=== PATIENT | female | born 1945 ===

== ENCOUNTER 2019-09-18 04:16 | Inpatient (IN) ==
[~2019-09-18 04:16] MED LIST: ACETAMINOPHEN 500 MG TABLET PO ONE; DIAZEPAM 5 MG TABLET PO ONE
[2019-09-18] MEDS ORDERED: VANCOMYCIN 1,000 MG VIAL ONE (05:52)
[2019-09-18] MEDS ORDERED: ceFAZolin 1,000 MG VIAL ONE (05:52)
[2019-09-18] MEDS ORDERED: DIAZEPAM 5 MG TABLET ONE (05:52)
[2019-09-18] MEDS ORDERED: ACETAMINOPHEN 500 MG TABLET ONE (05:53)
[2019-09-18] MEDS ORDERED: FAMOTIDINE 20 MG TABLET ONE (05:53)
[2019-09-18] MEDS ORDERED: GABAPENTIN 400 MG CAPSULE ONE (05:53)
[2019-09-18] MEDS ORDERED: FAMOTIDINE 20 MG TABLET PO ONE (06:30)
[2019-09-18] MEDS ORDERED: DIAZEPAM 5 MG TABLET PO ONE (06:30)
[2019-09-18] MEDS ORDERED: LACTATED RINGERS 1,000 ML IV SCH (06:30)
[2019-09-18] MEDS ORDERED: ceFAZolin 1,000 MG in SYRINGE 1 EACH IV ONE (06:30)
[2019-09-18] MEDS ORDERED: ACETAMINOPHEN 500 MG TABLET PO ONE (06:30)
[2019-09-18] MEDS ORDERED: GABAPENTIN 400 MG CAPSULE PO ONE (06:30)
[2019-09-18] MEDS ORDERED: VANCOMYCIN INJ 1,000 MG in SODIUM CHLORIDE 0.9% 250 ML IV ONE (06:30)
[2019-09-18] MEDS ORDERED: LIDOCAINE 1% 5 ML VIAL ONE (06:38)
[2019-09-18] MEDS ORDERED: DEXAMETHASONE 4 MG/1 ML VIAL ONE ×2 (06:38→08:59)
[2019-09-18] MEDS ORDERED: ROPIVACAINE 0.5% 30 ML VIAL ONE (06:38)
[2019-09-18] MEDS ORDERED: BISACODYL 10 MG SUPP RECTAL PRN (06:53)
[2019-09-18] MEDS ORDERED: diphenhydrAMINE CAP 25 MG CAPSULE PO PRN (06:53)
[2019-09-18] MEDS ORDERED: LACTULOSE 20 GM/30 ML UDCUP PO PRN (06:53)
[2019-09-18] MEDS ORDERED: PROMETHAZINE 25 MG/1 ML VIAL IM PRN (06:53)
[2019-09-18] MEDS ORDERED: ONDANSETRON 4 MG/2 ML VIAL IV PRN (06:53)
[2019-09-18] MEDS ORDERED: MAGNESIUM HYDROXIDE SUSP 30 ML UDCUP PO PRN (06:53)
[2019-09-18] MEDS ORDERED: TEMAZEPAM 7.5 MG CAPSULE PO PRN (06:53)
[2019-09-18] MEDS ORDERED: SENNA 8.6 MG TABLET PO PRN (06:56)
[2019-09-18] MEDS ORDERED: PROPOFOL 200 MG/20 ML VIAL IV ONE (08:57)
[2019-09-18] MEDS ORDERED: BUPIVACAINE SPINAL 0.75% 2 ML AMP SPINAL ONE (08:57)
[2019-09-18] MEDS ORDERED: LIDOCAINE 2% 5 ML VIAL ONE (08:57)
[2019-09-18] MEDS ORDERED: fentaNYL 100 MCG/2 ML VIAL ONE (08:58)
[2019-09-18] MEDS ORDERED: MIDAZOLAM 2 MG/2 ML VIAL ONE (08:58)
[2019-09-18] MEDS ORDERED: ONDANSETRON 4 MG/2 ML VIAL ONE (08:59)
[2019-09-18] MEDS ORDERED: KETAMINE 500 MG/10 ML VIAL ONE (08:59)
[2019-09-18] MEDS ORDERED: SODIUM CHLORIDE 0.9% 250 ML IV ONE (09:00)
[2019-09-18] MEDS ORDERED: ETOMIDATE 40 MG/20 ML VIAL IV ONE (09:00)
[2019-09-18] MEDS ORDERED: TRANEXAMIC ACID 1,000 MG/10 ML VIAL ONE (09:00)
[2019-09-18] MEDS ORDERED: INFLUENZA VIRUS VACCINE 0.5 ML SYRINGE IM ONE (10:04)
[2019-09-18] MEDS ORDERED: MORPHINE 4 MG/1 ML VIAL IV PRN (10:57)
[2019-09-18] MEDS: LISINOPRIL 20 MG TABLET PO SCH (11:06)
[2019-09-18] MEDS: MELOXICAM 7.5 MG TABLET PO SCH (11:07)
[2019-09-18] MEDS: DOCUSATE SODIUM 100 MG CAPSULE PO SCH ×2 (11:07→20:39)
[2019-09-18] MEDS: carvediloL 6.25 MG TABLET PO SCH ×2 (11:07→20:39)
[2019-09-18] MEDS: ERGOCALCIFEROL 50,000 UNIT CAPSULE PO SCH (11:07)
[2019-09-18] MEDS: ASPIRIN EC 81 MG TABLET PO SCH (11:07)
[2019-09-18] MEDS: ATORVASTATIN 80 MG TABLET PO SCH (11:07)
[2019-09-18] MEDS: MORPHINE 4 MG/1 ML VIAL IV PRN (12:37)
[2019-09-18] MEDS: ceFAZolin 1,000 MG in SYRINGE 1 EACH IV SCH ×2 (13:42→23:00)
[2019-09-18] MEDS: ALBUTEROL/IPRATROPIUM 3 ML NEB RESP TX SCH ×2 (15:37→19:25)
[2019-09-18] MEDS: FONDAPARINUX 2.5 MG/0.5 ML SYRINGE SUBCUT SCH (20:39)
[2019-09-19] MEDS: ALBUTEROL/IPRATROPIUM 3 ML NEB RESP TX SCH ×4 (00:55→19:57)
[2019-09-19 05:21] LABS: Basophils % 0.1 % (0.0-0.8); Hematocrit 33.2 VOL% (35.7-47.0); Hemoglobin 10.6 GM/DL (12.0-16.0); Immature Granulocytes % 0.5 %; Immature Granulocytes Absolute 0.06 #; Lymphocytes # 0.9 10*3/uL (1.4-4.0); Lymphocytes % 7.8 % (21.3-54.2); Mean Corpuscular HGB Conc 31.9 GM/DL (32-36); Mean Corpuscular Volume 92.2 FL (87-102); Mean Platelet Volume 10.8 FL (9.6-12.0); Neutrophils % 82.6 % (38.7-73.9); Platelet Count 165 T/CUMM (130-400); Red Cell Distribution Width 14.3 % (9.3-17.3); White Blood Count 11.6 T/CUMM (4-12)
[2019-09-19 05:53] LABS: Calcium 8.5 MG/DL (8.5-10.1)
[2019-09-19] MEDS: carvediloL 6.25 MG TABLET PO SCH ×2 (08:35→20:41)
[2019-09-19] MEDS: MELOXICAM 7.5 MG TABLET PO SCH (08:35)
[2019-09-19] MEDS: ATORVASTATIN 80 MG TABLET PO SCH (08:35)
[2019-09-19] MEDS: ASPIRIN EC 81 MG TABLET PO SCH (08:36)
[2019-09-19] MEDS: LISINOPRIL 20 MG TABLET PO SCH (08:36)
[2019-09-19] MEDS: DOCUSATE SODIUM 100 MG CAPSULE PO SCH ×2 (08:37→20:41)
[2019-09-19] MEDS: FONDAPARINUX 2.5 MG/0.5 ML SYRINGE SUBCUT SCH (20:41)
[2019-09-20] MEDS: ALBUTEROL/IPRATROPIUM 3 ML NEB RESP TX SCH ×4 (00:49→20:49)
[2019-09-20] MEDS: DOCUSATE SODIUM 100 MG CAPSULE PO SCH ×2 (08:42→21:28)
[2019-09-20] MEDS: ASPIRIN EC 81 MG TABLET PO SCH (08:42)
[2019-09-20] MEDS: carvediloL 6.25 MG TABLET PO SCH ×2 (08:43→21:28)
[2019-09-20] MEDS: ATORVASTATIN 80 MG TABLET PO SCH (08:43)
[2019-09-20] MEDS: MELOXICAM 7.5 MG TABLET PO SCH (08:43)
[2019-09-20] MEDS: LISINOPRIL 20 MG TABLET PO SCH (09:03)
[2019-09-20] MEDS: FONDAPARINUX 2.5 MG/0.5 ML SYRINGE SUBCUT SCH (21:30)
[2019-09-21] MEDS: ALBUTEROL/IPRATROPIUM 3 ML NEB RESP TX SCH ×3 (00:28→13:09)
[2019-09-21] MEDS: MORPHINE 4 MG/1 ML VIAL IV PRN (05:01)
[2019-09-21] MEDS: DOCUSATE SODIUM 100 MG CAPSULE PO SCH (08:35)
[2019-09-21] MEDS: ERGOCALCIFEROL 50,000 UNIT CAPSULE PO SCH (08:35)
[2019-09-21] MEDS: MELOXICAM 7.5 MG TABLET PO SCH (08:35)
[2019-09-21] MEDS: ASPIRIN EC 81 MG TABLET PO SCH (08:35)
[2019-09-21] MEDS: ATORVASTATIN 80 MG TABLET PO SCH (08:36)
[2019-09-21] MEDS: carvediloL 6.25 MG TABLET PO SCH (08:36)
[2019-09-21] MEDS: LISINOPRIL 20 MG TABLET PO SCH (08:38)
[2019-09-21 18:40] VITALS: BP 134/66
== END 2019-09-21 19:41 | disposition swing bed (61) | DRG 470 ==
LOC: N.PREADM 04:16 → N.SDSINP 04:17 → N.3E 09:33
PROVIDERS: ADMIT Orthopaedic Surgery; ATTEND Orthopaedic Surgery